=== PATIENT | male | born 2000 | race Caucasian/White ===

== ENCOUNTER 2021-06-24 04:55 | Emergency (ER) | payer OTHER ==
[~2021-06-24] VITALS: Ht 172.7 cm; Wt 63.5 kg
--- NOTE | 2021-06-24 04:55 | NUR ---
PT BIB [facility], PRE-BOOK. TAKEN TO CHAIR
[2021-06-24 04:57] VITALS: BP 121/89
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
--- NOTE | 2021-06-24 05:08 | NUR ---
Dr. Stout examining patient.
[2021-06-24 05:14] VITALS: BP 121/89
--- NOTE | 2021-06-24 05:14 | NUR ---
Patient discharged with v/s stable. Written and verbal after care instructions given and explained. Patient verbalized understanding. Ambulatory with steady gait. All questions addressed prior to discharge. Advised to follow up with PMD. PT IN [facility] OF [facility].
== END 2021-06-24 05:14 ==
LOC: MED 04:55
DX: S06.9X9A Unspecified intracranial injury with loss of consciousness of unspecified duration, initial encounter (principal); F12.90 Cannabis use, unspecified, uncomplicated; Z02.89 Encounter for other administrative examinations; Z98.890 Other specified postprocedural states; W22.8XXA Striking against or struck by other objects, initial encounter; Y93.89 Activity, other specified; Y92.89 Other specified places as the place of occurrence of the external cause; Y99.8 Other external cause status
CPT/HCPCS: 99283